=== PATIENT | female | born 1975 | race Caucasian/White ===

== ENCOUNTER → 2016-10-21 | Outpatient (CLI) | payer OTHER | END | disposition home or self-care (01) | LOC: LABWHC1 12:47 | PROVIDERS: ATTEND Orthopaedic Surgery | DX: Z01.810 Encounter for preprocedural cardiovascular examination (principal); G56.01 Carpal tunnel syndrome, right upper limb | CPT/HCPCS: 36415; 93005 ==

== ENCOUNTER → 2017-01-25 | Outpatient (CLI) | payer OTHER ==
--- NOTE | 2017-01-25 14:57 | MR ---
EXAMINATION TYPE: MR lumbar spine wo con DATE OF EXAM: 01/25/2017 1:57 PM COMPARISON: CT abdomen and pelvis September 10, 2010. HISTORY: Low back pain per order. Low back pain for 6 to 7 years causing pain into bilateral buttocks per patient. TECHNIQUE: Multiplanar, multisequence imaging of the lumbar spine is performed without IV contrast. FINDINGS: Sagittal images of the lumbar spine show vertebral body heights and alignment to appear sat isfactory. Multilevel disc desiccation is seen. There is mild disc space narrowing L3-L4 level. There are small posterior disc herniation seen at L3-L4 through L5-S1 levels on sagittal images. The conus medullaris is normal in position and signal ending at superior L1 vertebral body level. The bone ma rrow signal intensity is within normal limits. Mild multilevel anterior spurring in the lumbar spine and lower thoracic spine is present. Axial images show the T12-L1, L1-L2, and L2-L3 levels all to appear within normal limits.. Axial images at the L3-L4 level show mild broad disc bulge mildly effacing anterior thecal sac on axi al image 12, bilateral neural foramina remain patent. Axial images at the L4-L5 level show mild broad disc bulge mildly effacing anterior thecal sac, bilat eral neural foramina are patent. There is mild facet degenerative change seen bilaterally. Axial images at L5-S1 level show mild facet degenerative changes bilaterally. Slight thickening to crux of left adrenal gland on axial image 30 is felt stable from CT axial image 25. IMPRESSION: Some multilevel degenerative changes in the mid to lower lumbar spine as detailed above.
== END | disposition home or self-care (01) ==
LOC: RADMRIMAIN 13:17
PROVIDERS: ATTEND Family Medicine
DX: M47.817 Spondylosis without myelopathy or radiculopathy, lumbosacral region (principal)
CPT/HCPCS: 72148

== ENCOUNTER → 2017-04-05 | Outpatient (CLI) | payer OTHER ==
[2017-04-03 15:25] VITALS: BMI 32.9
[2017-04-05 11:51] VITALS: BP 118/77; PULSE 85; RESP 18; TEMP 97.6
--- NOTE | 2017-04-05 12:09 | P.HPIM ---
History of Present Illness H&P Date: 04/05/17 Chief Complaint: low back pain This is a 42-year-old patient referred by Dr. Ruiz for chronic pain in low back without radiation. Patient states that she fell and herniated two discs approximately ten years ago and notes that the pain has been worsening. Patient has been taking medications from primary care physician including [place] medications with some relief. Patient denies adverse drug effects from medications. Patient also denies new-onset weakness, bowel/bladder incontinence , or any other signs or symptoms of cauda equina syndrome. There are no signs of acute intoxication, and no indications of medication diversion or overuse. Patient notes that pain worsens significantly with standing straight and walking and improves with rest, heat, and medication. Patient has used several types of medications for pain, including NSAIDS, OPIOIDS ([place]), TRAMADOL. Patient HAS NOT had surgery. Patient HAS NOT had injections previously. Patient HAS had physical therapy recently without significant relief. In addition to above, 13-point review of systems is also negative for chest pain , shortness of breath, changes in vision, changes in hearing, new onset weakness , abdominal pain, diarrhea, extreme fatigue, malaise, fever, skin changes, homicidal or suicidal ideation, or bowel or bladder incontinence. Vital Signs: Reviewed in EMR Gen: WDWN, AAOx3, NAD HEENT: NCAT, EOMI, hearing grossly normal Pulm: resp unlabored Abd: soft, NT, ND Neck: supple, trachea midline ROM in flexion lumbar spine: reduced ROM in extension lumbar spine: reduced Lumbar paravertebral tenderness: + Facet loading: + bilateral SI joint tenderness: + bilateral Jacques's test: neg Straight leg raise: neg Neuro: CN II-XII grossly intact, muscle strength lower extremities PRESERVED Past Medical History Past Medical History: Diabetes Mellitus, GERD/Reflux, Hyperlipidemia, Hypertension, Osteoarthritis (OA), Thyroid Disorder Additional Past Medical History / Comment(s): NEUROPATHY LEGS AND FEET, HX OF BELLS PALSY X3 , VARICOSE VEINS, LOW IRON, ARTHRITIS KNEES HANDS AND BACK., BACK PAIN, HX OF STEROID INJECTIONS IN FEET (LAST JUL 2016). History of Any Multi-Drug Resistant Organisms: MRSA Date of last positivie culture/infection: 05/28/2014 MDRO Source:: Scalp Past Surgical History: Bariatric Surgery, Section, Cholecystectomy Additional Past Surgical History / Comment(s): LAP BAND (2007), LAP BAND REMOVED WITH GASTRIC SLEEVE (2010), CHINTAN CARPAL TUNNEL . Past Anesthesia/Blood Transfusion Reactions: No Reported Reaction Smoking Status: Current every day smoker - Past Family History Mother Family Medical History: No Reported History Medications and Allergies Home Medications Medication Instructions Recorded Confirmed Type DULoxetine HCL [Cymbalta] 60 mg PO HS 05/28/14 04/03/17 History Levothyroxine Sodium [Synthroid] 112 mcg PO DAILY 05/28/14 04/03/17 History Lisinopril-Hctz 20-12.5 mg 1 each PO DAILY 05/28/14 04/03/17 History [Zestoretic 20-12.5] Omeprazole [PriLOSEC] 20 mg PO AC-BRKFST 05/28/14 04/03/17 History Verapamil HCl [Verapamil ER] 180 mg PO DAILY 05/28/14 04/03/17 History DULoxetine HCL [Cymbalta] 30 mg PO QAM 04/03/17 04/03/17 History Ferrous Sulfate [Iron] 325 mg PO DAILY 04/03/17 04/03/17 History Gabapentin [Neurontin] 300 mg PO TID 04/03/17 04/03/17 History HYDROcodone/APAP 7.5-325MG [[place] 1 tab PO Q8HR PRN 04/03/17 04/05/17 History 7.5-325] Ibuprofen [Motrin] 800 mg PO Q8HR PRN 04/03/17 04/03/17 History Meloxicam [Mobic] 7.5 mg PO DAILY PRN 04/03/17 04/03/17 History Multivit-Min/Iron/Folic/Kew213 1 each PO DAILY 04/03/17 04/03/17 History [Hair, Skin and Nails Tablet] Naproxen 500 mg PO BID 04/03/17 04/03/17 History Simvastatin [Zocor] 40 mg PO HS 04/03/17 04/03/17 History metFORMIN HCL [Glucophage Xr] 750 mg PO DAILY 04/03/17 04/03/17 History sitaGLIPtin [Januvia] 100 mg PO DAILY 04/03/17 04/03/17 History Allergies Allergy/AdvReac Type Severity Reaction Status Date / Time sulfamethoxazole Allergy Rash/Hives Verified 04/03/17 14:55 [From Bactrim] trimethoprim [From Bactrim] Allergy Rash/Hives Verified 04/03/17 14:55 Physical Exam Vitals: Vital Signs Temp Pulse Resp BP Pulse Ox 04/05/17 11:44 97.6 F 85 18 118/77 99 Results Comments: MRI lumbar spine dated 01/25/2017 demonstrates a mild broad disc bulge at the L3 -L4 level mildly effacing the thecal sac. At the L4-L5 level there is mild broad disc bulge mildly effacing the thecal sac with patent bilateral neural foramina and facet degenerative changes bilaterally. At the L5-S1 level there are mild facet degenerative changes bilaterally Assessment and Plan (1) Lumbar disc herniation Status: Chronic (2) Spondylosis of lumbar region without myelopathy or radiculopathy Status: Chronic (3) Chronic pain syndrome Status: Chronic Plan: 1. Explanation: Opioid and psychological risk scores were reviewed. Diagnoses , prognoses, and multiple treatment options including but not limited to physical therapy, interventional therapies, adjuvant medical therapies, narcotic medication therapies, and surgery were discussed with the patient and all questions were answered to the patient's satisfaction. 2. Opioid agreement: no opioids prescribed today 3. Counseling: The patient was counseled extensively on SMOKING CESSATION, BODY MASS INDEX, EXERCISE. Specifically, the patient was instructed regarding the importance of smoking cessation, obesity, and exercise in the context of both chronic pain and overall health. 4. Procedures: bilateral lumbar MBB L3-S1 5. Consultations: none 6. Investigations: none 7. Medications: none prescribed 8. Disposition: f/u for procedure as scheduled PQRS measures: 1-Patient's medications are documented in the chart. 2-Tobacco use is positive, counseling given 3-Patient has not had a pneumococcal vaccine. 4-Advanced care planning discussed, patient unable to give. 5-Opioid contract NOT signed with the patient. 6-Pain positive, follow-up visit or procedure scheduled 7-Patient's blood pressure measured and documented, and WNL 8-Patient's weight was measured, and body mass index ABOVE the normal limits, and counseling was done. Patient instructed to follow up with PCP. 9-Patient WAS NOT identified as an unhealthy alcohol user. Time with Patient: Greater than 30
== END | disposition home or self-care (01) ==
LOC: PNWHC3 11:23
PROVIDERS: ATTEND Anesthesiology
DX: M51.26 Other intervertebral disc displacement, lumbar region (principal); M47.816 Spondylosis without myelopathy or radiculopathy, lumbar region; G89.4 Chronic pain syndrome; E11.9 Type 2 diabetes mellitus without complications; E78.5 Hyperlipidemia, unspecified; I10 Essential (primary) hypertension; M19.90 Unspecified osteoarthritis, unspecified site; F17.200 Nicotine dependence, unspecified, uncomplicated; K21.9 Gastro-esophageal reflux disease without esophagitis; Z98.84 Bariatric surgery status; Z98.890 Other specified postprocedural states; Z79.1 Long term (current) use of non-steroidal anti-inflammatories (NSAID); Z79.899 Other long term (current) drug therapy; Z88.2 Allergy status to sulfonamides
CPT/HCPCS: 99211

== ENCOUNTER 2017-05-09 06:29 | Day surgery (SDC) | payer OTHER ==
[2017-05-04 15:28] VITALS: BMI 32.9
[~2017-05-09 06:29] MED LIST: LACTATED RINGERS 1,000 ML IV ONE
[2017-05-09 06:49] VITALS: RESP 18; TEMP 98.3
[2017-05-09] MEDS ORDERED: LIDOCAINE 1% 20 ML VIAL (10MG/ML) FOR IV START INTRADERMA ONE (06:49)
[2017-05-09 06:55] LABS: Glucose,Whole Blood 136 mg/dL (75-99)
--- NOTE | 2017-05-09 07:45 | P.PCN ---
Date of Procedure: 05/09/17 Preoperative Diagnosis: Lumbar spondylosis without myelopathy Postoperative Diagnosis: Same as above Procedure(s) Performed: Lumbar bilateral medial branch block under fluoroscopic guidance for the medial branches L2, L3, L4, and the dorsal ramus of L5 Implants: Anesthesia: other (IV moderate conscious sedation with only 2 mg of Versed) Surgeon: Blue Fine Pathology: none sent Condition: stable Disposition: PACU Indications for Procedure: Operative Findings: Description of Procedure: The patient was seen in the preop holding area and she has axial lower back pain with no radiation to the lower extremities. The procedure was explained to the patient and her consent was obtained and was brought into the procedure when placed in prone position. The skin was prepped with ChloraPrep and draped in a sterile manner. Lidocaine 1% was used to numb the skin up at the target points that were chosen as follows: For the L5-S1 level which corresponds to the dorsal ramus of L5 the target points were at the superior medial aspect of the sacral ala on each side of the spine on the AP view of fluoroscopy and for the L2, L3, and L4 medial branches the target points were the connection between the transverse process and the superior articular process of L3, L4, and L5 vertebra respectively on the oblique views of fluoroscopy. I used 22- gauge 3-1/2 inch Quincke spinal needle for this procedure and after contacting bone at the target points mentioned above I injected 1 mL of Marcaine 0.5%. No steroids were used for this procedure and no IV fentanyl was given.
[2017-05-09] MEDS ORDERED: IV FLUID CONTINUATION 1,000 ML IV ONE (07:50)
[2017-05-09 08:14] VITALS: BP 131/86; PULSE 74
--- NOTE | 2017-05-09 08:35 | FL ---
Fluoroscopy HISTORY: Pain 8 seconds fluoroscopy time supplied to the referring clinician. 2 intraoperative C-arm images docume nt the procedure. See dictated report from anesthesia.
== END 2017-05-09 08:20 | disposition home or self-care (01) ==
LOC: ORPAIN 06:29
PROVIDERS: ATTEND Anesthesiology
DX: Z88.2 Allergy status to sulfonamides (principal)
CPT/HCPCS: 64493; 64494; 64495; 99152; J2250; 99153

== ENCOUNTER 2017-05-23 08:18 | Day surgery (SDC) | payer OTHER ==
[2017-05-22 08:47] VITALS: BMI 32.3
[2017-05-23 08:42] VITALS: RESP 16; TEMP 96.2
[2017-05-23] MEDS ORDERED: LIDOCAINE 1% 20 ML VIAL (10MG/ML) FOR IV START INTRADERMA ONE (08:47)
[2017-05-23 08:48] LABS: Glucose,Whole Blood 140 mg/dL (75-99)
[2017-05-23] MEDS ORDERED: LACTATED RINGERS 1,000 ML IV SCH (09:00)
--- NOTE | 2017-05-23 09:44 | P.PCN ---
Date of Procedure: 05/23/17 Preoperative Diagnosis: Postoperative Diagnosis: Procedure(s) Performed: Implants: Surgeon: Johnnie Carrasco Pathology: none sent Condition: stable Disposition: PACU Indications for Procedure: Operative Findings: Description of Procedure: PREOPERATIVE DIAGNOSIS: L3-L4, L4-L5, and L5-S1 spondylosis without myelopathy and facet arthropathy. POSTOPERATIVE DIAGNOSIS: L3-L4, L4-L5, and L5-S1 spondylosis without myelopathy and facet arthropathy. PROCEDURE DESCRIPTION: Patient presents for L3-L4, L4-L5 and L5-S1 diagnostic medial branch blocks under fluoroscopic guidance. The procedure is performed using fluoroscopic guidance during needle placement to assure proper position and maximize safety. ANESTHESIA: Local with 1% lidocaine; conscious sedation EBL: Minimal PROCEDURE INDICATION: Patient with lumbar facet arthropathy signs and symptoms, here for diagnostic medial branch block #2 with no relief (not even for a few hours) from first MBB. Pt does not take any blood thinning medications. PROCEDURE DESCRIPTION: The patient was seen and identified in the preoperative area. Risks, benefits, complications, and alternatives were discussed with the patient (including but not limited to incomplete pain relief, bleeding, infection, nerve damage, and allergies to medications), the patient agreed to proceed with the procedure and signed the consent after all questions were answered. Patient was taken to the OR and time out was completed to verify proper patient, position, laterality of pain, and allergies. Pt was placed in the prone position and a pillow was placed under the abdomen to reduce lumbar lordosis. The lumbosacral area was prepped and draped in the usual sterile fashion. Using oblique fluoroscopy, the eye of the "Jamari dog" of right L4 vertebral body, which corresponds to the path of the medial branch originating from the level above, which is L3 in this case, was identified. Subsequently, a 22-gauge 3.5-inch spinal needle was inserted under fluoroscopic guidance toward the eye of the "Jamari dog" of the right L4 vertebral body, corresponding to the junction of the superior articular process and the transverse process of the pedicle of the same level. After needle tip confirmation on lateral view and after negative aspiration for CSF and blood and without paresthesias, 1 mL of a 6 ml solution of 5 ml 0.5% preservative-free bupivacaine and 40 mg Kenalog was injected. Subsequently the needle was withdrawn intact and the same procedure was repeated for the right L4, right L5, left L3, left L4, and left L5 medial branches which together with right L3 medial branch correspond to the sensory innervation of the bilateral L3-L4, L4-L5, and L5-S1 facet joints. Needle was withdrawn intact after each injection. At the end of the procedure, the skin was cleansed and bandages were applied. COMPLICATIONS: None. DISPOSITION/PLAN: The patient taken to the recovery area after the procedure in a stable condition for observation. Patient was reexamined prior to discharge and there were no issues. Patient was discharged home, accompanied by an adult, after meeting discharged criteria. Discharge instructions were give to the patient by the staff. Patient was specifically instructed not to drive today and to rest for the rest of the day. Patient will follow up in clinic in 4-6 weeks.
[2017-05-23] MEDS ORDERED: IV FLUID CONTINUATION 1,000 ML IV ONE (09:49)
[2017-05-23 10:05] VITALS: BP 126/88; PULSE 72
--- NOTE | 2017-05-23 13:29 | FL ---
Fluoroscopy HISTORY: Pain 20 seconds fluoroscopy time supplied to the referring clinician. 5 intraoperative C-arm images docum ent the procedure. See dictated report from anesthesia.
== END 2017-05-23 10:22 | disposition home or self-care (01) ==
LOC: ORPAIN 08:18
PROVIDERS: ATTEND Anesthesiology
DX: M47.816 Spondylosis without myelopathy or radiculopathy, lumbar region (principal); M47.817 Spondylosis without myelopathy or radiculopathy, lumbosacral region; M46.96 Unspecified inflammatory spondylopathy, lumbar region; M46.97 Unspecified inflammatory spondylopathy, lumbosacral region
CPT/HCPCS: 64493; 64494; 64495; 99152; J3301

== ENCOUNTER → 2017-07-03 | Outpatient (CLI) | payer OTHER ==
[2017-07-03 14:37] VITALS: BP 101/63; PULSE 79; RESP 16; TEMP 98.2
--- NOTE | 2017-07-03 14:52 | P.PN ---
Progress Note - Text Patient returns for followup for chronic back pain with radiation to bilateral hips. Patient recently underwent LMBB x 2 with essentially no relief. Patient continues on opioids from PCP for pain with good relief. Patient denies adverse drug effects from medications. Today, pt denies new-onset weakness, bowel/bladder incontinence, or any other signs or symptoms of cauda equina syndrome. There are no signs of acute intoxication, and no indications of medication diversion or overuse. In addition to above, 13-point review of systems is also negative for chest pain , shortness of breath, changes in vision, changes in hearing, new onset weakness , abdominal pain, diarrhea, extreme fatigue, malaise, fever, skin changes, homicidal or suicidal ideation, or bowel or bladder incontinence. Vital Signs: Reviewed in EMR Gen: WDWN, AAOx3, NAD HEENT: NCAT, EOMI, hearing grossly normal Pulm: resp unlabored Abd: soft, NT, ND Neck: supple, trachea midline ROM in flexion lumbar spine: reduced ROM in extension lumbar spine: reduced Lumbar paravertebral tenderness: + Facet loading: neg SI joint tenderness: + bilateral Jacques's test: + bilateral Straight leg raise: neg Neuro: CN II-XII grossly intact, muscle strength lower extremities PRESERVED Imaging: Reviewed in EMR Assessment: 1. SIJ dysfunction 2. chronic pain syndrome 3. lumbar spondylosis Plan: 1. Explanation: Opioid and psychological risk scores were reviewed. Diagnoses , prognoses, and multiple treatment options including but not limited to physical therapy, interventional therapies, adjuvant medical therapies, narcotic medication therapies, and surgery were discussed with the patient and all questions were answered to the patient's satisfaction. 2. Opioid agreement: no opioids prescribed today 3. Counseling: The patient was counseled extensively on SMOKING CESSATION, BODY MASS INDEX, EXERCISE. Specifically, the patient was instructed regarding the importance of smoking cessation, weight control, and exercise in the context of both chronic pain and overall health. 4. Procedures: bilateral SI joint injection 5. Consultations: None 6. Investigations: None 7. Medications: none prescribed 8. Disposition: f/u for procedure as scheduled PQRS measures: 1-Patient's medications are documented in the chart. 2-Tobacco use is positive, counseling given 3-Patient has not had a pneumococcal vaccine. 4-Advanced care planning discussed, patient unable to give. 5-Opioid contract NOT signed with the patient. 6-Pain positive, follow-up visit or procedure scheduled 7-Patient's blood pressure measured and documented, and patient will follow up with the primary care due to hypertension. 8-Patient's weight was measured, and body mass index ABOVE the normal limits, and counseling was done. Patient instructed to follow up with PCP. 9-Patient WAS NOT identified as an unhealthy alcohol user.
== END | disposition home or self-care (01) ==
LOC: PNWHC3 14:19
PROVIDERS: ATTEND Anesthesiology
DX: M47.816 Spondylosis without myelopathy or radiculopathy, lumbar region (principal); M53.3 Sacrococcygeal disorders, not elsewhere classified; G89.4 Chronic pain syndrome
CPT/HCPCS: 99211

== ENCOUNTER 2017-07-05 06:18 | Day surgery (SDC) | payer OTHER ==
[2017-07-05 06:42] VITALS: RESP 16; TEMP 98.2
[2017-07-05] MEDS ORDERED: LACTATED RINGERS 1,000 ML IV ONE ×2 (06:48→07:30)
[2017-07-05] MEDS ORDERED: LIDOCAINE 1% 20 ML VIAL (10MG/ML) FOR IV START INTRADERMA ONE (06:48)
[2017-07-05 06:49] LABS: Glucose,Whole Blood 130 mg/dL (75-99)
[2017-07-05] MEDS ORDERED: IV FLUID CONTINUATION 1,000 ML IV ONE (07:41)
[2017-07-05 07:49] VITALS: BP 118/81; PULSE 68
--- NOTE | 2017-07-05 07:56 | P.PCN ---
Date of Procedure: 07/05/17 Surgeon: Johnnie Carrasco Pathology: none sent Condition: stable Disposition: PACU Description of Procedure: PREOPERATIVE DIAGNOSIS: 1-Bilateral sacroiliitis. 2 Lumbar DDD POSTOPERATIVE DIAGNOSIS:. 1-Bilateral sacroiliitis. 2 Lumbar DDD PROCEDURES: Bilateral Sacroiliac joint steroid injection with fluoroscopic guidance ANESTHESIA: Local with 1% lidocaine; conscious sedation EBL: Minimal. PROCEDURE INDICATIONS: This patient with a history of low back pain secondary to sacroiliitis and lumbar DDD unresponsive to conservative management. No use of blood thinners. SIJ injection #1 at this visit. PROCEDURE DESCRIPTION: The patient was seen and identified in the preoperative area. Risks, benefits, complications, and alternatives were discussed with the patient (including but not limited to incomplete pain relief, bleeding, infection, nerve damage, and allergies to medications), the patient agreed to proceed with the procedure and signed the consent after all questions were answered. Patient was taken to the OR and time out was completed to verify proper patient , position, laterality of pain, and allergies. Pt was placed in the prone position and a pillow was placed under the abdomen to reduce lumbar lordosis. The lumbosacral area was prepped and draped in the usual sterile fashion. Critical pause was taken. Vital signs were closely monitored during the procedure. The fluoroscopic camera was placed in contralateral oblique view and right sacroiliiac joint lower pole was identified. After local infiltration with 1% lidocaine 2 ml, Subsequently, a 22-gauge 3.5 inch spinal needle was introduced into the posteroinferior aspect of the right sacroiliac joint under direct fluoroscopic visualization. Subsequently, 3 ml of a solution of a total of 6 ml solution containing total 5 mL of 0.5% preservative-free bupivicaine mixed with 40 mg of Kenalog was injected after negative aspiration for CSF, blood, and air and negative for paresthesia. The entire procedure was repeated on the left side as above. Needle was withdrawn intact. Skin was cleansed, and bandages were applied. COMPLICATIONS: None. COMMENTS: DISPOSITION / PLANS: The patient was placed in a supine position and transferred to the recovery area in a stable condition for observation and was discharged from the recovery room after meeting discharge criteria. Home discharge instructions given to the patient by the staff. The patient was reexamined prior to discharge and there were no issues. The patient will schedule a repeat procedure in 2-4 weeks.
--- NOTE | 2017-07-05 08:45 | FL ---
EXAMINATION TYPE: FL guided pain mgmt statistic DATE OF EXAM: 07/05/2017 HISTORY: Flouroscopy time 6 seconds of fluoroscopy provided. IMPRESSION: 1. Fluoroscopy time.
== END 2017-07-05 08:03 | disposition home or self-care (01) ==
LOC: ORPAIN 06:18
PROVIDERS: ATTEND Anesthesiology
DX: G89.4 Chronic pain syndrome (principal); M46.1 Sacroiliitis, not elsewhere classified; M51.36 Other intervertebral disc degeneration, lumbar region; M47.816 Spondylosis without myelopathy or radiculopathy, lumbar region
CPT/HCPCS: J2250; J3301; Q9965; J3010; G0260; 99152

== ENCOUNTER → 2017-08-24 | Outpatient (CLI) | payer OTHER ==
[2017-08-24 13:57] VITALS: BP 115/74; PULSE 81; RESP 16
--- NOTE | 2017-08-24 21:07 | P.PN ---
Subjective Progress Note Date: 08/24/17 42 years old female with a chronic history of severe low back pain, diagnosed with lumbar spondylosis/lumbar degenerative disc disease and bilateral sacroiliitis, with done diagnostic medial branch block lumbar area ,and it was negative ,for any improvement of her pain, for this reason, we did not, proceed with the radiofrequency ablation, on we did bilateral sacroiliac joint steroid injection 2 patient reports that she had more than 50% improvement of low back pain after the sacroiliac joint steroid injections, denies any motor or sensory deficit she denies any fever or night sweats and that is no change in the bowel movement or urination Objective - Vital Signs Vital signs: Vital Signs Temp Pulse 81 08/24/17 13:52 Resp 16 08/24/17 13:52 BP 115/74 08/24/17 13:52 Pulse Ox Intake & Output 08/24/17 08/24/17 08/25/17 06:59 18:59 06:59 Weight 77.111 kg - Exam Physical Examinations : 1-Constitutiona : Cooperative , not in acute distress . 2-HEENT : nech ; supple , no Lymphadenopathy , normal thyroid size . eyes : no ptosis , no icterus, no photophobia . ENT : normal of hearing , normal oropharynx , no Thrush . 3- Respiratory : Chest clear to auscultations Bilaterally , no wheezing , no Rhonchi . 4- Cardiovascular : regular rate and rhythem , S1 , S2 , no S3 , no S4. 5- Gastrointestinal : abdomen soft no tenderness , bowel sounds positive all four quadrents , no organomegally . 6- Genitourinary : Defferred . 7- neurologic : Cranial nerve II to XII intact , no focal neurological deffecit . 8-psychatric : alert , oriented X 3 , appropriate affect , intact judgment and insight . 9-Lymphatic : no Lymphadenopathy . 10- musculoskeltal : , Lumber spine = normal moter stegnth lower extremities ,thigh and legs .5/5 deep tendon reflexes : normal Knee Jerk , normal ankle Jerk . positive lumber facet Loading Test strait leg raising test negative bilaterally Fabere test nrgative bilaterally Sever tenderness over the Sacroiliac joint on the Right , and Left side Assessment and Plan Plan: Assessment and plan= chronic low back pain secondary to lumbar degenerative disc disease , lumbar spondylosis with lumbar facet arthropathy , bilateral sacroiliitis. We've done diagnostic medial branch block lumbar area and it was negative for any improvement of her pain , and bilateral sacroiliac joint steroid injection patient had more than 50% decrease in her low back pain but only for short term And could be a good candidate to have radiofrequency ablation of the dorsal dramas of L5-S1 on the radiofrequency ablation of the lateral branches S1/S2/S3 ,we will do the right Side first then we will proceed with the left side later on, patient can currently using [place] 7.5/325 every 6 hours, and Neurontin 600 mg 3 times a day she denies any side effect of the medication she denies any excessive drowsiness and sleepiness, and continue to use the current medication, he is getting prescription refills from her primary care Time with Patient: Less than 30
== END | disposition home or self-care (01) ==
LOC: PNWHC3 13:45
PROVIDERS: ATTEND Specialist
DX: M51.36 Other intervertebral disc degeneration, lumbar region (principal); M47.816 Spondylosis without myelopathy or radiculopathy, lumbar region; M46.86 Other specified inflammatory spondylopathies, lumbar region; M46.1 Sacroiliitis, not elsewhere classified
CPT/HCPCS: 99211

== ENCOUNTER 2017-10-10 09:05 | Day surgery (SDC) | payer OTHER ==
[2017-10-04 09:45] VITALS: BMI 32.7
[~2017-10-10 09:05] MED LIST changes: -LACTATED RINGERS 1,000 ML IV ONE; +LACTATED RINGERS 1,000 ML IV SCH
[2017-10-10] MEDS ORDERED: LACTATED RINGERS 1,000 ML IV ONE (09:18)
[2017-10-10] MEDS ORDERED: LIDOCAINE 1% 20 ML VIAL (10MG/ML) FOR IV START INTRADERMA ONE (09:19)
[2017-10-10 09:29] LABS: Glucose,Whole Blood 130 mg/dL (75-99)
--- NOTE | 2017-10-10 11:19 | P.PCN ---
Date of Procedure: 10/10/17 Procedure(s) Performed: PREOPERATIVE DIAGNOSIS: 1-Lumbosacral spondylosis with facet arthropathy without myelopathy. 2- Bilateral sacroiliit. post operative Diagnosis: . 1-Lumbosacral spondylosis with facet arthropathy without myelopathy. 2-Bilateral sacroiliit. PROCEDURES: 1- Right radiofrequency thermocoagulation/ablation of the L5 dorsal ramus. 2- Right multi-site radiofrequency thermocoagulation/ablation of the S1, S2, lateral branchs. The procedure was performed using fluoroscopic guidance during needle placement to assure proper position and maximize safety . ANESTHESIA: LOCAL ANESTHESIA = moderate sedation with intravenous versed 2 mg and Fentanyle 100 mcg EBL: NONE INDICATION/MEDICAL NECESSITY: History of low back pain secondary to bilateral sacroiliitis and lumbosacral arthropathy unresponsive to more conservative treatments. The patient reported more than 50% relief of pain symptoms following 2 previous diagnostic blocks with Bupivacaine. PROCEDURE DESCRIPTION: The patient was seen and identified in the preoperative area. Risks, benefits, complications, and alternatives were discussed with the patient. The patient agreed to proceed with the procedure and signed the consent. Vital signs were checked before and after the procedure and they remained stable. Patient ambulated to the procedure room and time out was completed. The patient was placed in the prone position on the procedure table and a pillow was placed under the abdomen to reduce lumbar lordosis. The lumbosacral area was prepped and draped in the usual sterile fashion. Critical pause was taken. L5 Dorsal Ramus RF: Using right oblique fluoroscopy, the junction of the transverse process and the superior articular process of the right S1 vertebra, which correspond to the fluoroscopic image of the "eye of the Jamari dog" was identified. Subsequently, a 10-cm 20 -gauge radiofrequency cannula with a 10-mm active tip was advanced under fluoroscopic guidance until contact was made with periosteum. At this level, the Sensory testing of the L5 dorsal ramus was performed at 50 Hz and 0 to 1 volt with production of concordant pain starting at 0.5 volt. Motor stimulation was done at 2.5 Hz with stimulation of mulitifidus muscle contration . No radicular symptoms or paresthesias were produced during the testing. Subsequently, the L5 dorsal ramus was subjected to a radiofrequency ablation at 80 degree celsius for 90 seconds . after 0.5% Bupivacaine 1 ml injected at each level after negative aspirations . S1, S3, and S3 Lateral Branch RF: The lateral margins of the Right S1, S2 foramina were identified using AP fluoroscopy. Under fluoroscopic guidance, three 10-cm 20 -gauge radiofrequency cannula with a 10-mm active tip were inserted at 8-10 mm peripheral to the posterior S1 foramen, at various locations using clock-face coordinates. The center of the clock was registered at the lateral margin of the foramen. The 2: 30, 4:00, and 5:30 oclock positions were used. At this level, the sensory testing of the S1 lateral branch was performed at 50 Hz and 0 to 1 volt at the three levels with production of concordant pain starting at 0.5 volt. Motor stimulation was done at 2.5 Hz. No radicular symptoms or paresthesias were produced during the testing. Subsequently, the S1 lateral branch was subjected to a radiofrequency ablation at a mode of 90 seconds at 80 degrees Celsius at the 3 levels after negative motor and sensory testing and after injecting 0.5 ml of preservative free Bupivacaine 0.5 %. The same procedure was performed at the level of the S2 foramen. I did not visualize the S3 foramina for this reason I did not do the lateral branches for S3 The needle was withdrawn intact after each injection. COMPLICATIONS: The patient tolerated the procedure well without any acute complications. DISPOSTION/PLAN: The patient ambulated to the recovery area after the procedure in a stable condition for observation. Patient was reexamined prior to discharge. Patient was observed for 30 minutes in the recovery area and was discharged home, accompanied by an adult, after meeting discharged criteria. Discharge instructions were give to the patient by the staff. Patient was specifically instructed not to drive today and to rest for the rest of the day. The patient will schedule a follow up visit in the clinic in weeks or earlier if needed.
--- NOTE | 2017-10-10 11:20 | FL ---
EXAMINATION TYPE: FL guided pain mgmt statistic DATE OF EXAM: 10/10/2017 HISTORY: Flouroscopy time 12 seconds of fluoroscopy provided. IMPRESSION: 1. Fluoroscopy time.
[2017-10-10] MEDS ORDERED: IV FLUID CONTINUATION 1,000 ML IV ONE (11:24)
[2017-10-11 22:59] VITALS: BP 144/96; PULSE 72; RESP 18; TEMP 98
== END 2017-10-10 12:09 | disposition home or self-care (01) ==
LOC: ORPAIN 09:05
PROVIDERS: ATTEND Specialist
DX: M47.817 Spondylosis without myelopathy or radiculopathy, lumbosacral region (principal); M46.1 Sacroiliitis, not elsewhere classified; I10 Essential (primary) hypertension; E11.9 Type 2 diabetes mellitus without complications; Z88.2 Allergy status to sulfonamides
CPT/HCPCS: 81025; 64640 ×2; 64635; J2250; J3301; J3010; 99152; 99153

== ENCOUNTER → 2017-11-09 | Day surgery (SDC) | payer OTHER ==
[2017-11-03 08:27] VITALS: BMI 32.7
[~2017-11-09] MED LIST changes: +IV FLUID CONTINUATION 1,000 ML IV ONE
[2017-11-09 08:27] VITALS: RESP 16; TEMP 97.7
[2017-11-09 08:29] LABS: Glucose,Whole Blood 123 mg/dL (75-99)
--- NOTE | 2017-11-09 09:49 | P.PCN ---
Date of Procedure: 11/09/17 Anesthesia: MAC (Moderate conscious sedation with IV fentanyl and Versed) Surgeon: Blue Fine Pathology: none sent Condition: stable Disposition: PACU Description of Procedure: PREOPERATIVE DIAGNOSIS: 1-Lumbosacral spondylosis with facet arthropathy without myelopathy. 2- Bilateral sacroiliit. post operative Diagnosis: . 1-Lumbosacral spondylosis with facet arthropathy without myelopathy. 2-Bilateral sacroiliit. PROCEDURES: 1- Left radiofrequency thermocoagulation/ablation of the L5 dorsal ramus. 2- Left multi-site radiofrequency thermocoagulation/ablation of the S1, S2, lateral branchs. The procedure was performed using fluoroscopic guidance during needle placement to assure proper position and maximize safety . ANESTHESIA: LOCAL ANESTHESIA = moderate sedation with intravenous versed 2 mg and Fentanyle 100 mcg EBL: Negligible INDICATION/MEDICAL NECESSITY: History of low back pain secondary to bilateral sacroiliitis and lumbosacral arthropathy unresponsive to more conservative treatments. The patient reported more than 50% relief of pain symptoms following 2 previous diagnostic blocks with Bupivacaine. PROCEDURE DESCRIPTION: The patient was seen and identified in the preoperative area. Risks, benefits, complications, and alternatives were discussed with the patient. The patient agreed to proceed with the procedure and signed the consent. Vital signs were checked before and after the procedure and they remained stable. Patient ambulated to the procedure room and time out was completed. The patient was placed in the prone position on the procedure table and a pillow was placed under the abdomen to reduce lumbar lordosis. The lumbosacral area was prepped and draped in the usual sterile fashion. Critical pause was taken. L5 Dorsal Ramus RF: Using right oblique fluoroscopy, the junction of the transverse process and the superior articular process of the left S1 vertebra, which correspond to the fluoroscopic image of the "eye of the Jamari dog" was identified. Subsequently, a 10-cm 20 -gauge radiofrequency cannula with a 10-mm active tip was advanced under fluoroscopic guidance until contact was made with periosteum. Motor stimulation was done at 2.5 Hz with stimulation of mulitifidus muscle contration . No radicular symptoms or paresthesias were produced during the testing. Subsequently, the L5 dorsal ramus was subjected to a radiofrequency ablation at 80 degree celsius for 90 seconds . after 0.5% Bupivacaine 1 ml injected at each level after negative aspirations . S1, S3, and S3 Lateral Branch RF: The lateral margins of the left S1, S2 foramina were identified using AP fluoroscopy. Under fluoroscopic guidance, three 10-cm 20 -gauge radiofrequency cannula with a 10-mm active tip were inserted at 8-10 mm peripheral to the posterior S1 foramen, at various locations using clock-face coordinates. The center of the clock was registered at the lateral margin of the foramen. Motor stimulation was done at 2.5 Hz. No radicular symptoms or paresthesias were produced during the testing. Subsequently, the S1 lateral branch was subjected to a radiofrequency ablation at a mode of 90 seconds at 80 degrees Celsius at the 3 levels after negative motor and sensory testing and after injecting 0.5 ml of preservative free Bupivacaine 0.5 %. The same procedure was performed at the level of the S2 foramen. I did not visualize the S3 foramina for this reason I did not do the lateral branches for S3 The needle was withdrawn intact after each injection. COMPLICATIONS: The patient tolerated the procedure well without any acute complications. DISPOSTION/PLAN: The patient ambulated to the recovery area after the procedure in a stable condition for observation. Patient was reexamined prior to discharge. Patient was observed for 30 minutes in the recovery area and was discharged home, accompanied by an adult, after meeting discharged criteria. Discharge instructions were give to the patient by the staff. Patient was specifically instructed not to drive today and to rest for the rest of the day. The patient will schedule a follow up visit in the clinic in weeks or earlier if needed.
[2017-11-09 10:17] VITALS: BP 134/90; PULSE 74
--- NOTE | 2017-11-09 10:51 | FL ---
Fluoroscopy HISTORY: Pain 45 seconds fluoroscopy time supplied to the referring clinician. 2 intraoperative C-arm images docum ent the procedure. See dictated report from anesthesia.
== END ==
LOC: ORPAIN 08:05
PROVIDERS: ATTEND Anesthesiology
DX: M47.817 Spondylosis without myelopathy or radiculopathy, lumbosacral region (principal); M46.1 Sacroiliitis, not elsewhere classified; I10 Essential (primary) hypertension; E11.9 Type 2 diabetes mellitus without complications; E03.9 Hypothyroidism, unspecified; Z88.2 Allergy status to sulfonamides
CPT/HCPCS: 81025; 64640 ×2; 64635; J2250; J3301; J2001; J3010; 99152; 99153

== ENCOUNTER → 2017-12-04 | Outpatient (CLI) | payer OTHER ==
[2017-12-04 14:51] VITALS: BP 120/80; PULSE 79; RESP 20
--- NOTE | 2017-12-04 15:19 | P.PN ---
Subjective Progress Note Date: 12/04/17 This is follow-up visit for this patient with a history of severe and chronic low back pain secondary to lumbar degenerative disc disease, lumbar facet arthropathy, and sacroiliitis we have done diagnostic medial branch block which was negative , and we did not proceed with the radiofrequency ablation of the medial branch lumbar area , then later on we did bilateral sacroiliac joint injection x2 , and it was positive and then we did the radiofrequency ablation of the sacroiliac joint , she reported that she had no benefit from it patient currently on Mobic 7.5 mg daily , Neurontin 800 mg 3 times a day , [place] 7.5/ 325 every 8 hours Patient denies any side effects of the medication, denies excessive drowsiness or sleepiness, denies suicidal ideation, and reports that the current pain medication is NOT helping To control the pain and improve activity of daily living . Patient denies any motor or sensory deficit, denies change in bowel movement or urination, patient denies any fever or night sweats and patient here for follow-up visit and medication refill Objective - Vital Signs Vital signs: Vital Signs Temp Pulse 79 12/04/17 14:42 Resp 20 12/04/17 14:42 BP 120/80 12/04/17 14:42 Pulse Ox 96 12/04/17 14:42 Intake & Output 12/03/17 12/04/17 12/04/17 18:59 06:59 18:59 Weight 77.111 kg - Exam Physical Examinations : 1-Constitutiona : Cooperative , not in acute distress . 2-HEENT : nech ; supple , no Lymphadenopathy , normal thyroid size . eyes : no ptosis , no icterus, no photophobia . ENT : normal of hearing , normal oropharynx , no Thrush . 3- Respiratory : Chest clear to auscultations Bilaterally , no wheezing , no Rhonchi . 4- Cardiovascular : regular rate and rhythem , S1 , S2 , no S3 , no S4. 5- Gastrointestinal : abdomen soft no tenderness , bowel sounds positive all four quadrents , no organomegally . 6- Genitourinary : Defferred . 7- neurologic : Cranial nerve II to XII intact , no focal neurological deffecit . 8-psychatric : alert , oriented X 3 , appropriate affect , intact judgment and insight . 9-Lymphatic : no Lymphadenopathy . 10- musculoskeltal : , Lumber spine = normal moter stegnth lower extremities ,thigh and legs .5/5 deep tendon reflexes : normal Knee Jerk , normal ankle Jerk . lumber facet Loading Test positive strait leg raising test negative bilaterally Fabere test negative Right and negative Left Sever tenderness over the Sacroiliac joint on the Right , and Left side Assessment and Plan Plan: Assessment and plan= chronic severe low back pain secondary to lumbar degenerative disc disease, lumbar spondylosis, and bilateral sacroiliitis She continued to have severe low back pain after radiofrequency ablation of the sacroiliac joint. I reviewed MRI of the lumbar spine and It showed that she had ,mild lumbar degenerative disc disease , Patient should continue her current pain medication, and she could benefit from Voltaren gel 1% to be applied to the lumbar/sacral area I don't think patient will benefit from any surgical intervention, Time with Patient: Less than 30
== END | disposition home or self-care (01) ==
LOC: PNWHC3 14:29
PROVIDERS: ATTEND Specialist
DX: G89.29 Other chronic pain (principal); M51.36 Other intervertebral disc degeneration, lumbar region; M47.816 Spondylosis without myelopathy or radiculopathy, lumbar region; M46.1 Sacroiliitis, not elsewhere classified; Z79.891 Long term (current) use of opiate analgesic; Z79.899 Other long term (current) drug therapy; Z79.1 Long term (current) use of non-steroidal anti-inflammatories (NSAID)
CPT/HCPCS: 99211

== ENCOUNTER → 2018-12-06 | Outpatient (CLI) | payer OTHER ==
--- NOTE | 2018-12-06 19:05 | CT ---
EXAMINATION TYPE: CT sinus wo con DATE OF EXAM: 12/06/2018 COMPARISON: None HISTORY: Chronic sinusitis, CADET CT DLP: 599 mGycm CONTRAST: 0 mL of Isovue 300 The paranasal sinuses are examined in the axial plane at 2 mm thick sections. Reconstructed images i n the coronal plane were obtained. There is dental amalgam scatter artifact The maxillary sinuses are clear. The ethmoid air cells are clear. The sphenoid sinuses are clear. The frontal sinuses are clear. The septum is evaluated. There is septal deviation to the left. The ostiomeatal units are patent. Visualized portions of the mastoid air cells are clear. Maxillary s pine and nasal bones are intact. IMPRESSIONS: 1. No suspicious acute or chronic sinusitis changes.
== END | disposition home or self-care (01) ==
LOC: RADCTMAIN 16:16
PROVIDERS: ATTEND Family Medicine
DX: J01.11 Acute recurrent frontal sinusitis (principal)
CPT/HCPCS: 70486

== ENCOUNTER → 2019-08-13 | Outpatient (CLI) | payer OTHER ==
--- NOTE | 2019-08-13 15:07 | MR ---
EXAMINATION TYPE: MR lumbar spine wo con DATE OF EXAM: 08/13/2019 COMPARISON: MRI lumbar spine January 25, 2017 HISTORY: LBP, tom leg numbness/weakness. Bulging disc and leg cramps per order. TECHNIQUE: Multiplanar, multisequence imaging of the lumbar spine is performed without IV contrast. FINDINGS: Sagittal images of the lumbar spine show vertebral body heights to remain satisfactory. Sli ght grade 1 retrolisthesis L3 on L4 sagittal image 8 is more prominent from prior. Multilevel disc de siccation centered L3-L4 level with mild disc space narrowing redemonstrated. The conus medullaris r emains normal in position and signal ending superior L1 level. The bone marrow signal intensity is w ithin normal limits. Mild multilevel anterior spurring redemonstrated. Axial images show the T12-L1, L1-L2, and L2-L3 levels all to remain within normal limits. Axial images at the L3-L4 level mild broad disc bulge mildly effacing anterior thecal sac, bilateral neural foramina are patent. No significant change from prior. Axial images at L4-L5 level show [id number]-hfhcyjhh facet degenerative changes and ligamentum flavum hy pertrophy with mild broad disc bulge mildly effaces the anterior thecal sac. Bilateral neural foramin a are patent. No significant change from prior. Axial images at the L5-S1 level show mild facet degenerative changes bilaterally. Small central disc protrusion is seen but spinal canal is preserved. Bilateral neural foramina are patent. No significan t change from prior. Slight thickening to the central portion left adrenal gland axial image 30 is unchanged from prior st udy. IMPRESSION: Multilevel degenerative changes mid to lower lumbar spine as detailed above. New subtle s pondylolisthesis L3-L4 level otherwise no significant interval change.
== END | disposition home or self-care (01) ==
LOC: RADMRIMAIN 13:32
PROVIDERS: ATTEND Psychiatry & Neurology Neurology
DX: M43.16 Spondylolisthesis, lumbar region (principal); M47.816 Spondylosis without myelopathy or radiculopathy, lumbar region; E11.42 Type 2 diabetes mellitus with diabetic polyneuropathy
CPT/HCPCS: 72148

== ENCOUNTER 2021-02-05 12:04 | Emergency (ER) | payer OTHER ==
[2021-02-05 12:22] VITALS: RESP 16
[2021-02-05] MEDS ORDERED: VANCOMYCIN IV PER PHARMACY 1 EACH MISC MISCELLANE PRN (12:51)
[2021-02-05] MEDS ORDERED: VANCOMYCIN 1,250 MG in SODIUM CHLORIDE 0.9% 250 ML IVPB STA (12:52)
--- NOTE | 2021-02-05 12:57 | ED ---
General Adult HPI - General Chief complaint: Extremity Problem,Nontraumatic Stated complaint: post injection swelling lt hand Time Seen by Provider: 02/05/21 12:26 Source: patient Mode of arrival: ambulatory Limitations: no limitations - History of Present Illness Initial comments: Dictation was produced using [employer] dictation software. please excuse any grammatical, word or spelling errors. This patient was cared for during a federal and state declared state of emergency secondary to Covid 19 Chief Complaint: 45-year-old female presents with hand infection History of Present Illness: 45-year-old female she presents today with hand infection. Patient received left hand injections by her primary care physician approximately one week ago. She received multiple of these injections to the left hand to treat trigger finger. These injections were performed by her primary care physician. She started having symptoms of pain and redness. She went back to primary care doctor will give her some antibiotics. She had a repeat appointment today because her symptoms were getting worse. She was sent to orthopedic surgery. Orthopedic surgery evaluated the patient and initially wanted to have patient admitted to the hospital for direct admission for IV antibiotics. This was arranged by nurse practitioner Gi Luo. They were not allowed to do a direct admission. Instead they arranged for patient to have outpatient vancomycin. They sent patient to the emergency department to get baseline labs and to get her first dose of vancomycin. Patient denies any constitutional symptoms. She states that she's having worsening pain and redness to the lateral volar surface of the left palm. The ROS documented in this emergency department record has been reviewed and confirmed by me. Those systems with pertinent positive or negative responses have been documented in the HPI. All other systems are other negative and/or noncontributory. PHYSICAL EXAM: General Impression: Alert and oriented x3, not in acute distress HEENT: Normocephalic atraumatic, extra-ocular movements intact, pupils equal and reactive to light bilaterally, mucous membranes moist. Cardiovascular: Heart regular rate and rhythm Chest: Able to complete full sentences, no retractions, no tachypnea Abdomen: abdomen soft, non-tender, non-distended, no organomegaly Musculoskeletal: Pulses present and equal in all extremities, no peripheral edema Motor: no focal deficits noted Neurological: CN II-XII grossly intact, no focal motor or sensory deficits noted Skin: Intact with no visualized rashes Left hand: Redness and palpatory tenderness to the area of the metacarpal head on the volar side Psych: Normal affect and mood ED course: 45-year-old female presents with hand infection secondary to hand injections to treat trigger finger. All signs upon arrival are within acceptable limits. I did discussed patient case with Gi Luo, nurse practitioner for orthopedic surgery who requested that patient have baseline labs, first dose of vancomycin and to be discharged. Gi Luo reports that she arrange patient to receive outpatient vancomycin over the next couple days. Patient was or the emergency department for approximately 3 hours. She is given vancomycin. Laboratory evaluation was obtained. Mild leukocytosis of 11.2. Metabolic panel is unremarkable. Rest of CBC is unremarkable. Pending blood cultures. Patient discharge. She has a plan that believe is reasonable be performed outpatient given the current pandemic situation. Patient discharge. She is told to use seek medical attention if her symptoms acutely worsened. Patient is understandable agreeable. She is reliable has a good social situation. - Related Data Home Medications Medication Instructions Recorded Confirmed DULoxetine HCL [Cymbalta] 60 mg PO HS 05/28/14 12/04/17 Levothyroxine Sodium [Synthroid] 112 mcg PO DAILY 05/28/14 12/04/17 Lisinopril-Hctz 20-12.5 mg 1 each PO DAILY 05/28/14 12/04/17 [Zestoretic 20-12.5] Omeprazole [PriLOSEC] 20 mg PO AC-BRKFST 05/28/14 12/04/17 Verapamil HCl [Verapamil ER] 180 mg PO DAILY 05/28/14 12/04/17 DULoxetine HCL [Cymbalta] 30 mg PO QAM 04/03/17 12/04/17 Ferrous Sulfate [Iron] 325 mg PO DAILY 04/03/17 12/04/17 Gabapentin [Neurontin] 800 mg PO TID 04/03/17 12/04/17 HYDROcodone/APAP 7.5-325MG [Hume 1 tab PO Q8HR PRN 04/03/17 12/04/17 7.5-325] Meloxicam [Mobic] 7.5 mg PO DAILY PRN 04/03/17 12/04/17 Multivit-Min/Iron/Folic/Eec460 1 each PO DAILY 04/03/17 12/04/17 [Hair, Skin and Nails Tablet] Simvastatin [Zocor] 40 mg PO HS 04/03/17 12/04/17 metFORMIN HCL [Glucophage Xr] 750 mg PO DAILY 04/03/17 12/04/17 sitaGLIPtin [Januvia] 100 mg PO DAILY 04/03/17 12/04/17 Previous Rx's Medication Instructions Recorded Diclofenac Sodium Gel [Voltaren 2 gm TOPICAL BID #7 tube 12/04/17 Gel] Allergies Allergy/AdvReac Type Severity Reaction Status Date / Time sulfamethoxazole Allergy Rash/Hives Verified 02/05/21 12:22 [From Bactrim] trimethoprim [From Bactrim] Allergy Rash/Hives Verified 02/05/21 12:22 Review of Systems ROS Statement: Those systems with pertinent positive or pertinent negative responses have been documented in the HPI. ROS Other: All systems not noted in ROS Statement are negative. Past Medical History Past Medical History: Diabetes Mellitus, Hyperlipidemia, Hypertension, Thyroid Disorder Additional Past Medical History / Comment(s): Neuropathy to lower extremities. History of Any Multi-Drug Resistant Organisms: MRSA Date of last positivie culture/infection: 05/28/2014 MDRO Source:: Scalp Past Surgical History: Bariatric Surgery, Section, Orthopedic Surgery Additional Past Surgical History / Comment(s): Joe. Carpal Tunnel; Pain Procedures Past Anesthesia/Blood Transfusion Reactions: No Reported Reaction Past Alcohol Use History: Rare - Past Family History Father Family Medical History: No Reported History Mother Family Medical History: No Reported History General Exam Limitations: no limitations Course Vital Signs 02/05/21 12:17 Temperature 98.6 F Pulse Rate 83 Respiratory 16 Rate Blood Pressure 113/82 O2 Sat by Pulse 97 Oximetry Medical Decision Making - Lab Data Result diagrams: 02/05/21 13:15 02/05/21 13:15 Lab Results 02/05/21 02/05/21 02/05/21 Range/Units 13:15 13:15 13:15 WBC 11.2 H (3.8-10.6) k/uL RBC 4.73 (3.80-5.40) m/uL Hgb 14.1 (11.4-16.0) gm/dL Hct 43.8 (34.0-46.0) % MCV 92.6 (80.0-100.0) fL MCH 29.8 (25.0-35.0) pg MCHC 32.2 (31.0-37.0) g/dL RDW 13.6 (11.5-15.5) % Plt Count 254 (150-450) k/uL MPV 7.9 Neutrophils % 76 % Lymphocytes % 14 % Monocytes % 6 % Eosinophils % 2 % Basophils % 1 % Neutrophils # 8.5 H (1.3-7.7) k/uL Lymphocytes # 1.5 (1.0-4.8) k/uL Monocytes # 0.7 (0-1.0) k/uL Eosinophils # 0.3 (0-0.7) k/uL Basophils # 0.1 (0-0.2) k/uL Sodium 139 (137-145) mmol/L Potassium 3.8 (3.5-5.1) mmol/L Chloride 103 (98-107) mmol/L Carbon Dioxide 29 (22-30) mmol/L Anion Gap 7 mmol/L BUN 10 (7-17) mg/dL Creatinine 0.77 (0.52-1.04) mg/dL Est GFR (CKD-EPI)AfAm >90 (>60 ml/min/1.73 sqM) Est GFR (CKD-EPI)NonAf >90 (>60 ml/min/1.73 sqM) Glucose 125 H (74-99) mg/dL Plasma Lactic Acid Sukh 1.0 (0.7-2.0) mmol/L Calcium 9.4 (8.4-10.2) mg/dL Influenza Type A (PCR) (Not Detectd) Influenza Type B (PCR) (Not Detectd) RSV (PCR) (Not Detectd) SARS-CoV-2 (PCR) (Not Detectd) 02/05/21 Range/Units 13:15 WBC (3.8-10.6) k/uL RBC (3.80-5.40) m/uL Hgb (11.4-16.0) gm/dL Hct (34.0-46.0) % MCV (80.0-100.0) fL MCH (25.0-35.0) pg MCHC (31.0-37.0) g/dL RDW (11.5-15.5) % Plt Count (150-450) k/uL MPV Neutrophils % % Lymphocytes % % Monocytes % % Eosinophils % % Basophils % % Neutrophils # (1.3-7.7) k/uL Lymphocytes # (1.0-4.8) k/uL Monocytes # (0-1.0) k/uL Eosinophils # (0-0.7) k/uL Basophils # (0-0.2) k/uL Sodium (137-145) mmol/L Potassium (3.5-5.1) mmol/L Chloride (98-107) mmol/L Carbon Dioxide (22-30) mmol/L Anion Gap mmol/L BUN (7-17) mg/dL Creatinine (0.52-1.04) mg/dL Est GFR (CKD-EPI)AfAm (>60 ml/min/1.73 sqM) Est GFR (CKD-EPI)NonAf (>60 ml/min/1.73 sqM) Glucose (74-99) mg/dL Plasma Lactic Acid Sukh (0.7-2.0) mmol/L Calcium (8.4-10.2) mg/dL Influenza Type A (PCR) Not Detected (Not Detectd) Influenza Type B (PCR) Not Detected (Not Detectd) RSV (PCR) Not Detected (Not Detectd) SARS-CoV-2 (PCR) Not Detected (Not Detectd) Disposition Clinical Impression: Cellulitis of hand Disposition: HOME SELF-CARE Condition: Fair Additional Instructions: Follow-up with planned provided by orthopedic surgery for outpatient vancomycin. Please seek medical attention if symptoms get worse especially with involvement of fever, chills or weakness. Is patient prescribed a controlled substance at d/c from ED?: No Referrals: Miguel Ruiz MD [Primary Care Provider] - 1-2 days Hunter Pelayo MD [STAFF PHYSICIAN] - 1-2 days Time of Disposition: 15:45
[2021-02-05 13:35] LABS: Basophils # (A) 0.1 k/uL (0-0.2); Basophils % (A) 1 %; Eosinophils # (A) 0.3 k/uL (0-0.7); Eosinophils % (A) 2 %; HCT 43.8 % (34.0-46.0); HGB 14.1 gm/dL (11.4-16.0); Lymphocytes # (A) 1.5 k/uL (1.0-4.8); Lymphocytes % (A) 14 %; MCH 29.8 pg (25.0-35.0); MCHC 32.2 g/dL (31.0-37.0); MCV 92.6 fL (80.0-100.0); Mean Platelet Volume 7.9; Monocytes # (A) 0.7 k/uL (0-1.0); Monocytes % (A) 6 %; Neutrophils # (A) 8.5 k/uL (1.3-7.7); Neutrophils % (A) 76 %; Platelet Count 254 k/uL (150-450); RBC 4.73 m/uL (3.80-5.40); RDW 13.6 % (11.5-15.5); WBC 11.2 k/uL (3.8-10.6)
[2021-02-05 13:50] LABS: African American GFR (CKD) >90 (>60 ml/min/1.73 sqM); Anion Gap 7 mmol/L; Blood Urea Nitrogen 10 mg/dL (7-17); Calcium 9.4 mg/dL (8.4-10.2); Carbon Dioxide 29 mmol/L (22-30); Chloride 103 mmol/L (98-107); Glucose 125 mg/dL (74-99); Non-African American GFR(CKD) >90 (>60 ml/min/1.73 sqM); Potassium 3.8 mmol/L (3.5-5.1); Sodium 139 mmol/L (137-145)
[2021-02-05 16:04] VITALS: BP 138/78; PULSE 81; TEMP 98.4
== END 2021-02-05 16:03 | disposition home or self-care (01) ==
LOC: EC 12:04
DX: L03.119 Cellulitis of unspecified part of limb (principal); E11.40 Type 2 diabetes mellitus with diabetic neuropathy, unspecified; E78.5 Hyperlipidemia, unspecified; I10 Essential (primary) hypertension; Z79.84 Long term (current) use of oral hypoglycemic drugs
CPT/HCPCS: 36415; 80048; 83605; 85025; 87040; 87636; 99283; 96365; 96366; J3370

== ENCOUNTER → 2021-02-08 | Outpatient (CLI) | payer OTHER ==
--- NOTE | 2021-02-12 09:01 | P.PCN ---
Date of Procedure: 02/08/21 Preoperative Diagnosis: Cellulitis right hand. Abscess right hand, fifth finger. Postoperative Diagnosis: Same Procedure(s) Performed: Incision and drainage abscess right hand. Anesthesia: local Surgeon: Gi Luo Estimated Blood Loss (ml): 1 Pathology: other (Cultures sent) Condition: stable Disposition: same day Indications for Procedure: Abscess with cellulitis left hand. Operative Findings: Abscess right hand. Description of Procedure: This is a 45-year-old female whom we have been following in our office for a cellulitis to her right hand. She has been receiving IV vancomycin twice daily through with her outpatient since no inpatient beds are available at this time. She is seen today in it was more procedures. Her cellulitis is improving. However, a localized area of abscess has developed about the flexor crease of the palmar aspect of the fifth finger.The patient was evaluated by Dr. Pelayo today. Dr. Pelayo has asked that I incised the area of abscess. This area is prepped with Betadine and approximately 8 cc of 1% lidocaine is used as a local anesthetic to the area. A 15 blade scalpel is used to incise approximately 1 cm through the dermis into the subcutaneous tissue. Approximately 1-2 cc of purulent material is expressed and cultures are taken. The area is left open and half-inch iodoform gauze packing was used to pack the wound. A sterile dressing is applied and secured in place with a Coban wrap. The patient tolerated the procedure well.She will continue with IV vancomycin and follow up in our office on for reevaluation.
== END ==
LOC: PROCWHC3 09:46
PROVIDERS: ATTEND Orthopaedic Surgery
DX: L02.511 Cutaneous abscess of right hand (principal)
CPT/HCPCS: 87070; 87075; 87077; 87186; 87205

== ENCOUNTER → 2021-06-30 | Outpatient (CLI) | payer OTHER ==
--- NOTE | 2021-06-30 19:32 | MR ---
EXAMINATION TYPE: MR lumbar spine wo con DATE OF EXAM: 06/30/2021 COMPARISON: MRI lumbar spine 08/13/2019 HISTORY: Low back pain on both sides for 18 years, much worse since 2019 TECHNIQUE: Multiplanar, multisequence images of the lumbar spine were acquired without IV contrast. L1-L2: Normal disc appearance without desiccation. No herniation, protrusion or disc bulging. No ca nal stenosis is present. Foramina are patent bilaterally. L2-L3: Normal disc appearance without desiccation. No herniation, protrusion or disc bulging. No ca nal stenosis is present. Foramina are patent bilaterally. L3-L4: Mild circumferential disc bulge. No herniation or protrusion. Ligamentum flavum thickening. M ild canal stenosis is present. Foramina are patent bilaterally. L4-L5: Mild circumferential disc bulge. No herniation or protrusion. Ligamentum flavum thickening a nd bilateral facet hypertrophy. Mild canal stenosis is present. Bilateral neuroforaminal stenosis tom aterally. L5-S1: Mild circumferential disc bulge. No herniation or protrusion. Ligamentum flavum thickening. No canal stenosis is present. Foramina are patent bilaterally. Lumbar segments are intact. No paraspinal masses are identified. Conus medullaris has a normal appe arance. Vertebral body heights and alignment are maintained. There is lumbar lordosis. Abnormal bone marrow s ignal. IMPRESSION: Mild progressive degenerative changes. No high-grade canal or neuroforaminal stenosis.
== END | disposition home or self-care (01) ==
LOC: RADMRIMAIN 18:36
PROVIDERS: ATTEND Family Medicine
DX: M47.816 Spondylosis without myelopathy or radiculopathy, lumbar region (principal)
CPT/HCPCS: 72148

== ENCOUNTER → 2021-09-28 | Outpatient (CLI) | payer OTHER ==
[2021-09-28 23:23] LABS: Basophils # (A) 0.11 X 10*3/uL (0.00-0.10); Basophils % (A) 1.3 %; Eosinophils # (A) 0.43 X 10*3/uL (0.04-0.35); HCT 35.8 % (37.2-46.3); HGB 11.2 g/dL (12.0-15.0); Lymphocytes # (A) 2.53 X 10*3/uL (0.90-5.00); Lymphocytes % (A) 29.6 %; MCH 30.1 pg (27.0-32.0); MCHC 31.3 g/dL (32.0-37.0); MCV 96.2 fL (80.0-97.0); Mean Platelet Volume 11.3 fL (9.5-12.2); Monocytes # (A) 0.54 X 10*3/uL (0.20-1.00); Monocytes % (A) 6.3 %; Neutrophils # (A) 4.88 X 10*3/uL (1.80-7.70); Neutrophils % (A) 57.2 %; Platelet Count 303 X 10*3/uL (140-440); RBC 3.72 X 10*6/uL (4.10-5.20); RDW 13.7 % (11.5-14.5); WBC 8.54 X 10*3/uL (4.50-10.00)
[2021-09-29 01:03] LABS: ALT 15 U/L (8-44); AST 14 U/L (13-35); African American GFR (CKD) 85.6 (60.0-200.0); BUN/Creat Ratio 14.38 Ratio (12.00-20.00); Blood Urea Nitrogen 13.2 mg/dL (9.0-27.0); Calcium 8.8 mg/dL (8.7-10.3); Carbon Dioxide 23.4 mmol/L (20.0-27.5); Chloride 106 mmol/L (96-109); Creatine Kinase 56 U/L (26-186); Glucose 101 mg/dL (70-110); Non-African American GFR(CKD) 73.8 (60.0-200.0); Potassium 4.6 mmol/L (3.5-5.5); Sodium 144 mmol/L (135-145); Uric Acid 5.3 mg/dL (2.9-7.7)
[2021-09-29 01:16] LABS: Erythrocyte Sedimentation Rate 13 mm/Hr (0-20)
[2021-09-29 01:32] LABS: C Reactive Protein <0.30 mg/dL (0.00-0.80)
[2021-09-29 02:09] LABS: Rheumatoid Factor, Qnt <10 IU/mL (0-15)
[2021-09-29 03:01] LABS: Cyclic Citrull Pep IgG Unit <0.5 U/mL; Cyclic Citrullinated Pep IgG NEGATIVE (NEGATIVE)
[2021-09-29 08:24] LABS: Angiotensin-1 Converting Enz. 3 U/L (8-52)
[2021-09-29 10:37] LABS: HLA B27 NEGATIVE
[2021-09-29 19:23] LABS: Vitamin D, 1, 25-Dihydroxy 49 pg/mL (20 - 79)
== END | disposition home or self-care (01) ==
LOC: LABWHC1 15:42
PROVIDERS: ATTEND Orthopaedic Surgery
DX: M65.4 Radial styloid tenosynovitis [de Quervain] (principal); M18.0 Bilateral primary osteoarthritis of first carpometacarpal joints; M25.532 Pain in left wrist
CPT/HCPCS: 36415; 80048; 82164; 82306; 82550; 82652; 83520; 84439; 84443; 84450; 84460; 84550; 85025; 85652; 86038; 86140; 86200; 86431; 86812

== ENCOUNTER → 2023-02-25 | Outpatient (CLI) | payer BC ==
[2023-02-25 13:34] LABS: ALT 19 U/L (8-44); AST 21 U/L (13-35); African American GFR (CKD) 113.6 (60.0-200.0); Albumin 4.5 g/dL (3.8-4.9); Albumin/Globulin Ratio 2.08 (1.60-3.17); Alkaline Phosphatase 59 U/L (41-126); Blood Urea Nitrogen 6.9 mg/dL (9.0-27.0); Calcium 9.4 mg/dL (8.7-10.3); Carbon Dioxide 24.4 mmol/L (20.0-27.5); Chloride 100 mmol/L (96-109); Chol/HDL Ratio 3.01 Ratio; Globulin 2.2 g/dL (1.6-3.3); Glucose 81 mg/dL (70-110); LDL Cholesterol,Calculated 53.6 mg/dL (0.0-131.0); Potassium 4.3 mmol/L (3.5-5.5); Sodium 139 mmol/L (135-145); Total Protein 6.6 g/dL (6.2-8.2)
== END | disposition home or self-care (01) ==
LOC: LABWHC1 08:36
PROVIDERS: ATTEND Nurse Practitioner Family
DX: Z00.00 Encounter for general adult medical examination without abnormal findings (principal); E66.3 Overweight; E11.9 Type 2 diabetes mellitus without complications; F17.200 Nicotine dependence, unspecified, uncomplicated; E03.9 Hypothyroidism, unspecified; Z68.29 Body mass index [BMI] 29.0-29.9, adult
CPT/HCPCS: 36415; 80053; 80061

== ENCOUNTER → 2024-04-06 | Outpatient (CLI) | payer BC ==
--- NOTE | 2024-04-06 23:30 | MR ---
EXAMINATION TYPE: MR lumbar spine wo/w con DATE OF EXAM: 04/06/2024 COMPARISON: Prior MRI lumbar spine June 30, 2021 HISTORY: Chronic lower back pain, radiates into back of calves. TECHNIQUE: Multiplanar, multisequence images of the lumbar spine is performed without and with IV contrast, util izing 6 mL intravenous Gadavist FINDINGS: Sagittal images of the lumbar spine show vertebral body heights to remain satisfactory. Sli ght grade 1 retrolisthesis L3 on L4 is redemonstrated. Persistent disc desiccation with mild disc spa ce narrowing at L3-L4 level. The conus medullaris remains normal in position and signal ending super ior L1 level. The bone marrow signal intensity is within normal limits. No suspicious postcontrast e nhancement is seen. Axial images show the T12-L1, L1-L2, and L2-L3 levels all to remain within normal limits. Axial images at the L3-L4 level redemonstrate mild to moderate broad disc bulge mildly effacing anter ior thecal sac, bilateral neural foramina are patent. No significant change from prior. No significan t change from prior. Axial images at L4-L5 level redemonstrated [id number] facet degenerative changes and ligamentum flavum hypertrophy with mild broad disc bulge minimally effaces the anterior thecal sac. Mild bilate ral neural foraminal narrowing. No significant change from prior. Axial images at the L5-S1 level redemonstrated mild to moderate facet degenerative changes bilaterall y. Spinal canal is preserved. Bilateral neural foramina are patent. No significant change from prior. Slight asymmetric thickening to the central portion left adrenal gland axial image 29 is unchanged fr om prior studies favored benign. IMPRESSION: Multilevel mild to moderate degenerative changes in the mid to lower lumbar spine as deta iled above. No significant change from most recent prior MRI. No abnormal enhancement noted.
== END | disposition home or self-care (01) ==
LOC: RADMRIMAIN 14:43
PROVIDERS: ATTEND Family Medicine
DX: M47.816 Spondylosis without myelopathy or radiculopathy, lumbar region (principal); M41.86 Other forms of scoliosis, lumbar region; M43.16 Spondylolisthesis, lumbar region; M96.1 Postlaminectomy syndrome, not elsewhere classified
CPT/HCPCS: 72158

== ENCOUNTER → 2024-07-02 | Outpatient (CLI) | payer BC ==
--- NOTE | 2024-07-03 00:20 | XR ---
EXAMINATION TYPE: XR chest 2V DATE OF EXAM: 07/02/2024 COMPARISON: None INDICATION: Preprocedure exam TECHNIQUE: Frontal and lateral views of the chest are obtained. FINDINGS: The heart size is normal. The pulmonary vasculature is normal. The lungs are clear. Mild scoliosis through the thoracic and lumbar spine. IMPRESSION: 1. No acute pulmonary process. 2. Mild scoliosis [facility] Dominick Breen, , 07/03/2024 12:17 AM
== END | disposition home or self-care (01) ==
LOC: RADXRMAIN 15:02
PROVIDERS: ATTEND Family Medicine
DX: Z01.818 Encounter for other preprocedural examination
CPT/HCPCS: 71046

== ENCOUNTER → 2024-07-02 | Outpatient (CLI) | payer BC ==
[2024-07-02 16:36] LABS: Partial Thromboplastin Time 26.1 sec (22.0-30.0); Prothrombin Time 10.7 sec (10.0-12.5)
[2024-07-02 21:15] LABS: Basophils # (A) 0.07 X 10*3/uL (0.00-0.10); Basophils % (A) 0.9 %; Eosinophils # (A) 0.39 X 10*3/uL (0.04-0.35); Eosinophils % (A) 5.2 %; HCT 38.5 % (37.2-46.3); HGB 12.6 g/dL (12.0-15.0); Lymphocytes # (A) 2.27 X 10*3/uL (0.90-5.00); Lymphocytes % (A) 30.5 %; MCH 31.3 pg (27.0-32.0); MCHC 32.7 g/dL (32.0-37.0); MCV 95.8 FL (80.0-97.0); Mean Platelet Volume 11.3 FL (9.5-12.2); Monocytes # (A) 0.54 X 10*3/uL (0.20-1.00); Monocytes % (A) 7.2 %; NRBC Per 100 WBC 0 X 10*3/uL (0.00-0.01); Neutrophils # (A) 4.15 X 10*3/uL (1.80-7.70); Neutrophils % (A) 55.8 %; Platelet Count 246 X 10*3/uL (140-440); RBC 4.02 X 10*6/uL (4.10-5.20); RDW 13.1 % (11.5-14.5); WBC 7.45 X 10*3/uL (4.50-10.00)
[2024-07-02 21:52] LABS: ALT 12 U/L (8-44); AST 15 U/L (13-35); Albumin/Globulin Ratio 2.11 Ratio (1.60-3.17); Alkaline Phosphatase 51 U/L (41-126); BUN/Creat Ratio 10.12 Ratio (12.00-20.00); Blood Urea Nitrogen 8.1 mg/dL (9.0-27.0); Calcium 9.1 mg/dL (8.7-10.3); Carbon Dioxide 26.8 mmol/L (21.6-31.8); Chloride 105 mmol/L (96-109); Globulin 1.9 g/dL (1.6-3.3); Glucose 84 mg/dL (70-110); Potassium 4.5 mmol/L (3.5-5.5); Sodium 143 mmol/L (135-145); Total Bilirubin <0.2 mg/dL (0.3-1.2); Total Protein 5.9 g/dL (6.2-8.2)
== END | disposition home or self-care (01) ==
LOC: LABWHC1 14:16
PROVIDERS: ATTEND Family Medicine
DX: Z01.812 Encounter for preprocedural laboratory examination (principal)
CPT/HCPCS: 36415; 80053; 83036; 85025; 85610; 85730

== ENCOUNTER → 2025-01-04 | Outpatient (CLI) | payer BC ==
[2025-01-04 13:20] LABS: Basophils # (A) 0.09 X 10*3/uL (0.00-0.10); Basophils % (A) 1.1 %; Eosinophils # (A) 0.27 X 10*3/uL (0.04-0.35); Eosinophils % (A) 3.4 %; HCT 42.7 % (37.2-46.3); HGB 13.9 g/dL (12.0-15.0); Lymphocytes # (A) 1.86 X 10*3/uL (0.90-5.00); Lymphocytes % (A) 23.1 %; MCH 31.3 pg (27.0-32.0); MCHC 32.6 g/dL (32.0-37.0); MCV 96.2 FL (80.0-97.0); Mean Platelet Volume 11.2 FL (9.5-12.2); Monocytes # (A) 0.62 X 10*3/uL (0.20-1.00); Monocytes % (A) 7.7 %; NRBC Per 100 WBC 0 X 10*3/uL (0.00-0.01); Neutrophils # (A) 5.18 X 10*3/uL (1.80-7.70); Neutrophils % (A) 64.3 %; Platelet Count 221 X 10*3/uL (140-440); RBC 4.44 X 10*6/uL (4.10-5.20); RDW 13.3 % (11.5-14.5); WBC 8.05 X 10*3/uL (4.50-10.00)
[2025-01-04 13:38] LABS: BUN/Creat Ratio 10.11 Ratio (12.00-20.00); Blood Urea Nitrogen 9.1 mg/dL (9.0-27.0); Chloride 104 mmol/L (96-109); Glucose 90 mg/dL (70-110); LDL Cholesterol,Calculated 32.4 mg/dL (0.0-131.0); Potassium 4.1 mmol/L (3.5-5.5); Sodium 140 mmol/L (135-145); VLDL Calculation 15.58 mg/dL (5.00-40.00)
[2025-01-04 13:39] LABS: ALT 16 U/L (8-44); AST 18 U/L (13-35); Albumin 4.1 g/dL (3.8-4.9); Albumin/Globulin Ratio 2.05 Ratio (1.60-3.17); Alkaline Phosphatase 52 U/L (41-126); Calcium 9.3 mg/dL (8.7-10.3); Carbon Dioxide 26.9 mmol/L (21.6-31.8); Total Bilirubin 0.4 mg/dL (0.3-1.2); Total Protein 6.1 g/dL (6.2-8.2)
== END | disposition home or self-care (01) ==
LOC: LABWHC1 09:05
PROVIDERS: ATTEND Family Medicine
DX: Z00.00 Encounter for general adult medical examination without abnormal findings (principal); F17.210 Nicotine dependence, cigarettes, uncomplicated; I10 Essential (primary) hypertension; E78.5 Hyperlipidemia, unspecified; M43.16 Spondylolisthesis, lumbar region; E03.9 Hypothyroidism, unspecified; M96.1 Postlaminectomy syndrome, not elsewhere classified; E11.59 Type 2 diabetes mellitus with other circulatory complications; H53.8 Other visual disturbances; G63 Polyneuropathy in diseases classified elsewhere; F51.01 Primary insomnia; E11.9 Type 2 diabetes mellitus without complications; F33.0 Major depressive disorder, recurrent, mild
CPT/HCPCS: 36415; 80053; 80061; 84443; 85025